=== PATIENT | female | born 1960 | race Caucasian/White ===

== ENCOUNTER 2020-10-26 23:25 | Emergency (ER) | payer BC ==
[2020-10-26 23:36] VITALS: BP 116/54; PULSE 71
[2020-10-26] MEDS ORDERED: Ondansetron 4 MG Tab.DIS PO ONE (23:41)
[2020-10-26] MEDS ORDERED: LORazepam 2 MG/ML SDV IM ONE (23:42)
--- NOTE | 2020-10-26 23:47 | EDM.PDOCBH ---
ED HPI GENERAL MEDICAL PROBLEM - General Chief Complaint: Behavioral/Psych Stated Complaint: anxiety, panic attack Time Seen by Provider: 10/26/20 23:41 Source of Information: Reports: Patient History Limitations: Reports: No Limitations - History of Present Illness INITIAL COMMENTS - FREE TEXT/NARRATIVE: Pt with anxiety attack Has a hx/o same in past Uses oral meds at home but threw up her meds at home tonight Onset: Today, Gradual Duration: Hour(s): Location: Reports: Generalized Chest Pain Score (Numeric/FACES): 8 - Related Data Allergies Allergy/AdvReac Type Severity Reaction Status Date / Time Sulfa (Sulfonamide Allergy Rash Verified 10/26/20 23:29 Antibiotics) Home Meds: Home Meds ALPRAZolam [Alprazolam] 1 tab PO ASDIRECTED PRN 08/06/15 [History] Citalopram Hydrobromide [Celexa] 40 mg PO DAILY 08/06/15 [History] busPIRone [Buspar] 10 mg PO DAILY 08/06/15 [History] Pantoprazole Sodium [Protonix] 40 mg PO DAILY 10/26/20 [History] Past Medical History HEENT History: Reports: Impaired Vision Musculoskeletal History: Reports: Fracture, Osteoporosis Psychiatric History: Reports: Anxiety, Panic Attack Social & Family History - Tobacco Use Tobacco Use Status *Q: Never Tobacco User - Living Situation & Occupation Living situation: Reports: Occupation: Employed ED ROS GENERAL - Review of Systems Review Of Systems: See Below Constitutional: Reports: No Symptoms HEENT: Reports: No Symptoms Respiratory: Reports: No Symptoms Cardiovascular: Reports: No Symptoms GI/Abdominal: Reports: No Symptoms Musculoskeletal: Reports: No Symptoms Skin: Reports: No Symptoms Neurological: Reports: No Symptoms Psychiatric: Reports: Anxiety ED EXAM, BEHAVIORAL HEALTH - Physical Exam Exam: See Below Exam Limited By: No Limitations General Appearance: Alert, WD/WN Neck: Supple Respiratory/Chest: Lungs Clear Cardiovascular: Regular Rate, Rhythm Extremities: Normal Inspection Neurological: Alert, Normal Mood/Affect Psychiatric: Alert, Normal Affect, Normal Cognition, Normal Mood, Oriented COURSE, BEHAVIORAL HEALTH COMP - Course Vital Signs: Last Vital Signs Temp 97.6 F 10/26/20 23:30 Pulse 71 10/26/20 23:30 Resp 24 H 10/26/20 23:30 BP 116/54 L 10/26/20 23:30 Pulse Ox 100 02/08/21 23:30 Orders, Labs, Meds: Medications Discontinued Medications Generic Name Dose Route Start Last Admin Trade Name Ismael PRN Reason Stop Dose Admin Lorazepam 1 mg 10/26/20 23:42 Ativan IM 10/26/20 23:43 ONETIME ONE Ondansetron HCl 4 mg 10/26/20 23:41 Zofran Odt PO 10/26/20 23:42 ONETIME ONE Re-Assessment/Re-Exam: Pt given Zofran 4 mg ODT and Ativan 1 mg IM in ER Departure - Departure Time of Disposition: 23:50 Disposition: Home, Self-Care 01 Clinical Impression: Anxiety - Discharge Information *PRESCRIPTION DRUG MONITORING PROGRAM REVIEWED*: Not Applicable *COPY OF PRESCRIPTION DRUG MONITORING REPORT IN PATIENT TREVIN: Not Applicable Referrals: Isatu Gallo PA-C [Primary Care Provider] - Additional Instructions: Follow up in clinic Sepsis Event Note (ED) - Evaluation Sepsis Screening Result: No Definite Risk - Focused Exam Vital Signs: Vital Signs Temp Pulse Resp BP Pulse Ox 10/26/20 23:30 97.6 F 71 24 H 116/54 L 100
== END 2020-10-27 00:24 | disposition home or self-care (01) ==
LOC: LL.ED 23:25
DX: F41.9 Anxiety disorder, unspecified (principal); Z88.2 Allergy status to sulfonamides; Z79.899 Other long term (current) drug therapy
CPT/HCPCS: 96372; 99283; A9270-GY; J2060